=== PATIENT | male | born 1975 | race Hispanic/Latino ===

== ENCOUNTER → 2020-01-24 | Outpatient (CLI) | payer OTHER | END | disposition home or self-care (01) | LOC: OIH 11:10 | PROVIDERS: ATTEND Family Medicine | DX: M50.321 Other cervical disc degeneration at C4-C5 level (principal); M50.322 Other cervical disc degeneration at C5-C6 level; M48.02 Spinal stenosis, cervical region; M51.26 Other intervertebral disc displacement, lumbar region; M79.622 Pain in left upper arm; M62.81 Muscle weakness (generalized) | CPT/HCPCS: 72040; 73030 ==

== ENCOUNTER → 2021-03-11 | Outpatient (CLI) | payer OTHER | END | disposition home or self-care (01) | LOC: RAH 13:03 | PROVIDERS: ATTEND Nurse Practitioner Adult Health | DX: M47.812 Spondylosis without myelopathy or radiculopathy, cervical region (principal); M47.816 Spondylosis without myelopathy or radiculopathy, lumbar region; M48.061 Spinal stenosis, lumbar region without neurogenic claudication; M62.81 Muscle weakness (generalized); R29.6 Repeated falls | CPT/HCPCS: 72141; 72148 ==

== ENCOUNTER → 2022-06-11 | Outpatient (CLI) | payer OTHER | END | disposition home or self-care (01) | LOC: RAH 12:34 | PROVIDERS: ATTEND Anesthesiology Pain Medicine | DX: M47.814 Spondylosis without myelopathy or radiculopathy, thoracic region (principal); M54.6 Pain in thoracic spine; M48.03 Spinal stenosis, cervicothoracic region | CPT/HCPCS: 72146 ==